=== PATIENT | female | born 1950 | race Caucasian/White ===

== ENCOUNTER → 2017-06-22 | Outpatient (CLI) | payer MEDICARE, OTHER | END | disposition home or self-care (01) | LOC: LABWHC1 15:51 | PROVIDERS: ATTEND Internal Medicine | DX: Z01.89 Encounter for other specified special examinations (principal) | CPT/HCPCS: 36415; 86803 ==

== ENCOUNTER → 2017-12-23 | Outpatient (CLI) | payer MEDICARE, OTHER ==
[2017-12-23 10:03] LABS: Basophils # (A) 0.1 k/uL (0-0.2); Basophils % (A) 1 %; Eosinophils # (A) 0.4 k/uL (0-0.7); Eosinophils % (A) 6 %; HCT 44.4 % (34.0-46.0); HGB 14.7 gm/dL (11.4-16.0); Lymphocytes # (A) 2.4 k/uL (1.0-4.8); Lymphocytes % (A) 35 %; MCH 30.7 pg (25.0-35.0); Mean Platelet Volume 6.5; Monocytes # (A) 0.4 k/uL (0-1.0); Monocytes % (A) 5 %; Neutrophils # (A) 3.4 k/uL (1.3-7.7); Neutrophils % (A) 51 %; Platelet Count 358 k/uL (150-450); RBC 4.78 m/uL (3.80-5.40); RDW 13.2 % (11.5-15.5); WBC 6.7 k/uL (3.8-10.6)
[2017-12-23 10:36] LABS: Albumin 4.3 g/dL (3.5-5.0); Calcium 9.8 mg/dL (8.4-10.2); Potassium 4.9 mmol/L (3.5-5.1); Total Bilirubin 0.5 mg/dL (0.2-1.3); Total Protein 7.1 g/dL (6.3-8.2)
== END | disposition home or self-care (01) ==
LOC: LABWHC1 09:35
PROVIDERS: ATTEND Internal Medicine
DX: Z00.00 Encounter for general adult medical examination without abnormal findings (principal); E53.8 Deficiency of other specified B group vitamins
CPT/HCPCS: 36415; 80053; 80061; 82607; 84439; 84443; 85025

== ENCOUNTER → 2018-12-08 | Outpatient (CLI) | payer OTHER ==
[2018-12-08 11:43] LABS: Basophils # (A) 0.1 k/uL (0-0.2); Basophils % (A) 1 %; Eosinophils # (A) 0.2 k/uL (0-0.7); Eosinophils % (A) 4 %; HCT 44.8 % (34.0-46.0); HGB 14.4 gm/dL (11.4-16.0); Lymphocytes # (A) 2.2 k/uL (1.0-4.8); Lymphocytes % (A) 38 %; MCH 30.2 pg (25.0-35.0); MCHC 32.1 g/dL (31.0-37.0); MCV 94.1 fL (80.0-100.0); Mean Platelet Volume 7.1; Monocytes # (A) 0.3 k/uL (0-1.0); Monocytes % (A) 5 %; Neutrophils # (A) 2.8 k/uL (1.3-7.7); Neutrophils % (A) 50 %; Platelet Count 339 k/uL (150-450); RBC 4.76 m/uL (3.80-5.40); RDW 14.5 % (11.5-15.5); WBC 5.7 k/uL (3.8-10.6)
[2018-12-08 18:08] LABS: African American GFR (CKD) 66.1 (60.0-200.0); Albumin 4.5 g/dL (3.80-4.90); Albumin/Globulin Ratio 2.05 (1.60-3.17); Anion Gap 5.9 mmol/L (4.00-12.00); Calcium 9.7 mg/dL (8.7-10.3); Carbon Dioxide 28.1 mmol/L (21.6-31.8); Globulin 2.2 g/dL (1.6-3.3); LDL Cholesterol,Calculated 108.4 mg/dL (0.0-131.0); Potassium 4.5 mmol/L (3.5-5.5); Total Bilirubin 0.5 mg/dL (0.2-1.2); Total Protein 6.7 g/dL (6.2-8.2); VLDL Calculation 28.6 mg/dL (5.00-40.00)
[2018-12-08 18:17] LABS: T4, Free (Free Thyroxine) 1.1 ng/dL (0.80-1.80)
== END | disposition home or self-care (01) ==
LOC: LABWHC1 10:41
PROVIDERS: ATTEND Internal Medicine
DX: E78.5 Hyperlipidemia, unspecified (principal); J45.909 Unspecified asthma, uncomplicated; K21.9 Gastro-esophageal reflux disease without esophagitis; G44.1 Vascular headache, not elsewhere classified; Z00.00 Encounter for general adult medical examination without abnormal findings
CPT/HCPCS: 36415; 80053; 80061; 84439; 84443; 85025

== ENCOUNTER 2019-03-24 10:23 | Emergency (ER) | payer MEDICARE, OTHER ==
[2019-03-24] MEDS ORDERED: SODIUM CHLORIDE 0.9% 1,000 ML IV STA (12:10)
[2019-03-24] MEDS ORDERED: ONDANSETRON 4 MG/2 ML VIAL IVP STA (12:10)
--- NOTE | 2019-03-24 12:44 | XR ---
EXAMINATION TYPE: XR chest 2V DATE OF EXAM: 03/24/2019 COMPARISON: Chest x-ray 06/08/2015 HISTORY: Weakness, dizziness and nausea, abnormal chest x-ray TECHNIQUE: Frontal and lateral views of the chest are obtained. FINDINGS: There is no focal air space opacity, pleural effusion, or pneumothorax seen. The cardiac silhouette size is within normal limits. Calcified breast implants are again noted. There are dense c alcifications in the splenic artery as on prior. Biapical pleural thickening is minimal. The osseous structures are intact. IMPRESSION: No acute cardiopulmonary process.
[2019-03-24 13:44] LABS: Basophils # (A) 0.1 k/uL (0-0.2); Basophils % (A) 1 %; Eosinophils # (A) 0.1 k/uL (0-0.7); Eosinophils % (A) 1 %; HCT 46.8 % (34.0-46.0); HGB 15.9 gm/dL (11.4-16.0); Lymphocytes # (A) 2.1 k/uL (1.0-4.8); Lymphocytes % (A) 23 %; MCH 31.9 pg (25.0-35.0); MCHC 33.9 g/dL (31.0-37.0); MCV 93.9 fL (80.0-100.0); Mean Platelet Volume 6.2; Monocytes # (A) 0.4 k/uL (0-1.0); Monocytes % (A) 4 %; Neutrophils # (A) 6.4 k/uL (1.3-7.7); Neutrophils % (A) 69 %; Platelet Count 350 k/uL (150-450); RBC 4.98 m/uL (3.80-5.40); RDW 13.2 % (11.5-15.5); WBC 9.2 k/uL (3.8-10.6)
[2019-03-24 13:50] VITALS: RESP 18
--- NOTE | 2019-03-24 13:50 | CT ---
EXAMINATION TYPE: CT brain wo con DATE OF EXAM: 03/24/2019 COMPARISON: 09/06/2015 HISTORY: Dizziness and weakness CT DLP: 1099.[address] of the brain was performed. The ventricles, basal cisterns and sulci overlying the cerebral convexities demonstrate mild enlargem ent. There is no evidence for intracranial hemorrhage or sulcal effacement. There is decreased attenuation about the periventricular white matter and deep white matter of both c erebral hemispheres, compatible with chronic small vessel ischemia. Differential diagnosis does inclu de demyelination. No mass effects are seen.No midline shift. Osseous calvarium is intact. If symptoms persist consider MRI. IMPRESSION: 1. Age related atrophic and chronic small vessel ischemic change without acute intracranial process s een at this time.
[2019-03-24 13:51] LABS: Appearance,Urine Clear (Clear); Bilirubin,Urine Negative (Negative); Blood,Urine Negative (Negative); Color,Urine Light Yellow; Glucose,Urine (UA) Negative (Negative); Ketones,Urine Trace (Negative); Leukocyte Esterase,Urine Negative (Negative); Nitrite,Urine Negative (Negative); PH, Urine 7.5 (5.0-8.0); Protein,Urine Negative (Negative); Specific Gravity,Urine 1.008 (1.001-1.035); Urobilinogen,Urine <2.0 mg/dL (<2.0)
[2019-03-24 13:54] LABS: INR 0.9 (<1.2); Partial Thromboplastin Time 23.3 sec (22.0-30.0); Prothrombin Time 9.8 sec (9.0-12.0)
[2019-03-24 13:56] LABS: Albumin 4.7 g/dL (3.5-5.0); Magnesium 2.2 mg/dL (1.6-2.3); Potassium 4.2 mmol/L (3.5-5.1); Total Bilirubin 0.4 mg/dL (0.2-1.3); Total Protein 7.9 g/dL (6.3-8.2)
--- NOTE | 2019-03-24 15:07 | ED ---
Weakness HPI - General Chief complaint: Weakness Stated complaint: dizzy, nausea, weakness Time Seen by Provider: 03/24/19 10:35 Source: patient Mode of arrival: wheelchair Limitations: no limitations - History of Present Illness Initial comments: The patient is a 69-year-old female with past medical history of chronic back pain who presents to the emergency department with 1-1/2 weeks of generalized weakness. The patient reports that she started having weakness with a presyncopal sensation. She was also having nausea. She thought it may be secon joslyn to one of her medications, Elavil. She reports that she's been on the medication for over 10 years and has had no ill side effects. She did read on the side effects and thought her symptoms were related and therefore took herself off of the medication. She states she did not taper off or consult her primary care physician. After she was off the medications her symptoms worsened. States that she is able to eat and hold down food and water however she remains persistently nauseated. She reports a mild headache and fatigue. Denies any visual changes. Denies any chest pain or shortness of breath. No neck pain or stiffness. No fevers or chills. Denies any abdominal pain. Denies diarrhea, constipation, melanotic stools or hematochezia. Denies any changes in her urination to include dysuria, hematuria or difficulty voiding. No other medication changes. Denies any unilateral numbness or weakness. There are no other alleviating, precipitating or modifying factors - Related Data Home Medications Medication Instructions Recorded Confirmed Amitriptyline HCl [Elavil] 10 mg PO HS 06/05/15 03/24/19 Aspirin 81 mg PO DAILY 06/05/15 03/24/19 Biotin 5 mg PO BID 06/05/15 03/24/19 Ca/D3/Mag/Zinc/Alejandro/Giovanin/Mgbor 1 tab PO DAILY 06/05/15 03/24/19 [Caltrate 600-D3-Min Chew Tab] Glucosamine/Chondr Russell A Sod [Osteo 1 tab PO DAILY 06/05/15 03/24/19 Bi-Flex Caplet] Metaxalone [Skelaxin] 800 mg PO DAILY 06/05/15 03/24/19 Montelukast [Singulair] 10 mg PO HS 06/05/15 03/24/19 Serafina-3 Fatty Acids/Fish Oil [Fish 1 cap PO DAILY 06/05/15 03/24/19 Oil 1,000 mg Softgel] Propylene Glycol/Peg 400/Pf 1 drop BOTH EYES DAILY PRN 06/05/15 03/24/19 [Systane 0.3-0.4% Eye Drops] Simvastatin [Zocor] 20 mg PO HS 06/05/15 03/24/19 metroNIDAZOLE 0.75% CREAM 1 applic TOPICAL DAILY 06/05/15 03/24/19 [Metrocream] Fluticasone/Salmeterol [Advair 1 puff INHALATION RT-HS 06/08/15 03/24/19 100-50 Diskus] Lansoprazole [Prevacid] 30 mg PO Q48H 03/24/19 03/24/19 Multivitamins, Thera [Multivitamin 1 tab PO DAILY 03/24/19 03/24/19 (formulary)] Naproxen Sodium [Aleve] 220 mg PO Q12HR PRN 03/24/19 03/24/19 Vitamin B-12 3000 Mcg Sl 3,000 mcg SUBLINGUAL Q48H 03/24/19 03/24/19 Previous Rx's Medication Instructions Recorded Ondansetron Odt [Zofran Odt] 4 mg PO Q8HR PRN #15 tab 03/24/19 Allergies Allergy/AdvReac Type Severity Reaction Status Date / Time buprenorphine HCl Allergy Unknown Unknown Verified 03/24/19 11:53 [From Buprenex] hydromorphone HCl Allergy Unknown Verified 03/24/19 11:53 [From Dilaudid] meperidine HCl [From Demerol] Allergy Unknown Verified 03/24/19 11:53 morphine Allergy Unknown Verified 03/24/19 11:53 narcotics Allergy Unknown Uncoded 03/24/19 11:53 Review of Systems ROS Statement: Those systems with pertinent positive or pertinent negative responses have been documented in the HPI. ROS Other: All systems not noted in ROS Statement are negative. Past Medical History Past Medical History: Asthma, GERD/Reflux, Hyperlipidemia Additional Past Medical History / Comment(s): 06/08/15 Pt is direct admission for GI bleed and back pain. Pt states she helped lift wood recently and thinks she "over did it". She has been using Motrin 800's for pain control. Other HX: back pain, lumbar disc disease with surgery, mild diverticulosis, post nasal drip, tinnitis bilaterally, dry eyes bilaterally, "jumpy legs when lies down at [facility] helps, rosacea, shingelles in 2010. History of Any Multi-Drug Resistant Organisms: None Reported Past Surgical History: Appendectomy, Back Surgery, Breast Surgery, Hysterectomy, Orthopedic Surgery, Tubal Ligation Additional Past Surgical History / Comment(s): bilateral mammoplasty 1976, cystocele, urethrocele, rectocele repair 1998, laminectomy 1996, reat laminectomy 2000, laminectomy and fusion L4-S1 soos, stress test positive, echo and stress echo-negative in January/February 2010, colonoscopies in 2003 and 2011, L hand surgery. Past Anesthesia/Blood Transfusion Reactions: Postoperative Nausea & Vomiting (PONV) Additional Past Anesthesia/Blood Transfusion Reaction / Comment(s): Pt received blood in the past-unsure if it was her own- no reaction. Past Psychological History: No Psychological Hx Reported Smoking Status: Never smoker Past Alcohol Use History: Occasional Past Drug Use History: None Reported - Past Family History Father Family Medical History: CVA/TIA Additional Family Medical History / Comment(s): Father at age 80 yrs old of CVA. He had chronic lumbar degenerative disc disease and nicderma. Mother Family Medical History: Cancer Additional Family Medical History / Comment(s): Mother at age 39yrs from ovarian cancer. General Exam Limitations: no limitations General appearance: alert, in no apparent distress Head exam: Present: atraumatic, normocephalic, normal inspection Eye exam: Present: normal appearance, PERRL, EOMI. Absent: scleral icterus, conjunctival injection, periorbital swelling ENT exam: Present: normal exam, mucous membranes moist Neck exam: Present: normal inspection. Absent: tenderness, meningismus, lymphadenopathy Respiratory exam: Present: normal lung sounds bilaterally. Absent: respiratory distress, wheezes, rales, rhonchi, stridor Cardiovascular Exam: Present: regular rate, normal rhythm, normal heart sounds. Absent: systolic murmur, diastolic murmur, rubs, gallop, clicks GI/Abdominal exam: Present: soft, normal bowel sounds. Absent: distended, tenderness, guarding, rebound, rigid Extremities exam: Present: normal inspection, full ROM, normal capillary refill. Absent: tenderness, pedal edema, joint swelling, calf tenderness Back exam: Present: normal inspection Neurological exam: Present: alert, oriented X3, CN II-XII intact, normal gait, other (negative pronator driff. Finger to nose is symetric bilaterally. 5/5 muscle strength in all extremities. ) Psychiatric exam: Present: normal affect, normal mood Skin exam: Present: warm, dry, intact, normal color. Absent: rash Course Vital Signs 03/24/19 03/24/19 03/24/19 10:34 13:49 15:52 Temperature 98.8 F 98.0 F Pulse Rate 69 77 76 Respiratory 16 18 18 Rate Blood Pressure 143/84 151/90 140/78 O2 Sat by Pulse 99 96 98 Oximetry EKG Findings - EKG Comments: EKG Findings:: EKG demonstrates a normal sinus rhythm with a ventricular rate of 72. MT interval 154. QRS 86. QTC 429. There is an inverted T-wave in lead 3. No acute ST segment elevations Medical Decision Making - Medical Decision Making Upon arrival the patient was placed into room 15. She was hooked up to continuous pulse ox and cardiac monitoring. A 12-lead EKG was performed on the patient. Peripheral IV was established. I did provide her with 4 mg of Zofran for her nausea and a liter bolus of normal saline. I did recommend laboratory studies. I also recommended a CT of the patient's brain. I offered CT imaging the patient's abdomen however she refused. Laboratory studies demonstrate a gl ucose of 103. Troponin is negative. Urinalysis shows trace ketones. CT of the brain demonstrates age-related atrophy and chronic small vessel ischemic changes without acute intracranial process seen at this time. Chest x-ray demonstrates no acute intrathoracic process. I did reevaluate the patient she states that she has had complete resolution of her symptoms. I discussed the laboratory elisa dies with the patient as well as her imaging studies. The patient feels improved to go home at this time. I did instruct her to take her medications as directed and follow-up with her primary care physician. if she wants to come off of these medications, she may need to be tapered. Patient understood this. If she continues to have nausea she may require an EGD and GI follow-up. The patient understood this. If she has any new or worsening symptoms she should return to the emergency room. The patient was discharge home in stable condition - Lab Data Result diagrams: 03/24/19 13:29 03/24/19 13:29 Lab Results 03/24/19 03/24/19 03/24/19 Range/Units 13:29 13:29 13:29 WBC 9.2 (3.8-10.6) k/uL RBC 4.98 (3.80-5.40) m/uL Hgb 15.9 (11.4-16.0) gm/dL Hct 46.8 H (34.0-46.0) % MCV 93.9 (80.0-100.0) fL MCH 31.9 (25.0-35.0) pg MCHC 33.9 (31.0-37.0) g/dL RDW 13.2 (11.5-15.5) % Plt Count 350 (150-450) k/uL Neutrophils % 69 % Lymphocytes % 23 % Monocytes % 4 % Eosinophils % 1 % Basophils % 1 % Neutrophils # 6.4 (1.3-7.7) k/uL Lymphocytes # 2.1 (1.0-4.8) k/uL Monocytes # 0.4 (0-1.0) k/uL Eosinophils # 0.1 (0-0.7) k/uL Basophils # 0.1 (0-0.2) k/uL PT (9.0-12.0) sec INR (<1.2) APTT (22.0-30.0) sec Sodium 141 (137-145) mmol/L Potassium 4.2 (3.5-5.1) mmol/L Chloride 103 (98-107) mmol/L Carbon Dioxide 28 (22-30) mmol/L Anion Gap 10 mmol/L BUN 10 (7-17) mg/dL Creatinine 0.84 (0.52-1.04) mg/dL Est GFR (CKD-EPI)AfAm 81 (>60 ml/min/1.73 sqM) Est GFR (CKD-EPI)NonAf 70 (>60 ml/min/1.73 sqM) Glucose 103 H (74-99) mg/dL Plasma Lactic Acid Forest 1.2 (0.7-2.0) mmol/L Calcium 10.0 (8.4-10.2) mg/dL Magnesium 2.2 (1.6-2.3) mg/dL Total Bilirubin 0.4 (0.2-1.3) mg/dL AST 27 (14-36) U/L ALT 25 (9-52) U/L Alkaline Phosphatase 75 (38-126) U/L Creatine Kinase 44 (30-135) U/L Troponin I (0.000-0.034) ng/mL Total Protein 7.9 (6.3-8.2) g/dL Albumin 4.7 (3.5-5.0) g/dL TSH 1.650 (0.465-4.680) mIU/L Urine Color Urine Appearance (Clear) Urine pH (5.0-8.0) Ur Specific [place] (1.001-1.035) Urine Protein (Negative) Urine Glucose (UA) (Negative) Urine Ketones (Negative) Urine Blood (Negative) Urine Nitrite (Negative) Urine Bilirubin (Negative) Urine Urobilinogen (<2.0) mg/dL Ur Leukocyte Esterase (Negative) 03/24/19 03/24/19 03/24/19 Range/Units 13:29 13:29 13:45 WBC (3.8-10.6) k/uL RBC (3.80-5.40) m/uL Hgb (11.4-16.0) gm/dL Hct (34.0-46.0) % MCV (80.0-100.0) fL MCH (25.0-35.0) pg MCHC (31.0-37.0) g/dL RDW (11.5-15.5) % Plt Count (150-450) k/uL Neutrophils % % Lymphocytes % % Monocytes % % Eosinophils % % Basophils % % Neutrophils # (1.3-7.7) k/uL Lymphocytes # (1.0-4.8) k/uL Monocytes # (0-1.0) k/uL Eosinophils # (0-0.7) k/uL Basophils # (0-0.2) k/uL PT 9.8 (9.0-12.0) sec INR 0.9 (<1.2) APTT 23.3 (22.0-30.0) sec Sodium (137-145) mmol/L Potassium (3.5-5.1) mmol/L Chloride (98-107) mmol/L Carbon Dioxide (22-30) mmol/L Anion Gap mmol/L BUN (7-17) mg/dL Creatinine (0.52-1.04) mg/dL Est GFR (CKD-EPI)AfAm (>60 ml/min/1.73 sqM) Est GFR (CKD-EPI)NonAf (>60 ml/min/1.73 sqM) Glucose (74-99) mg/dL Plasma Lactic Acid Forest (0.7-2.0) mmol/L Calcium (8.4-10.2) mg/dL Magnesium (1.6-2.3) mg/dL Total Bilirubin (0.2-1.3) mg/dL AST (14-36) U/L ALT (9-52) U/L Alkaline Phosphatase (38-126) U/L Creatine Kinase (30-135) U/L Troponin I <0.012 (0.000-0.034) ng/mL Total Protein (6.3-8.2) g/dL Albumin (3.5-5.0) g/dL TSH (0.465-4.680) mIU/L Urine Color Light Yellow Urine Appearance Clear (Clear) Urine pH 7.5 (5.0-8.0) Ur Specific [place] 1.008 (1.001-1.035) Urine Protein Negative (Negative) Urine Glucose (UA) Negative (Negative) Urine Ketones Trace H (Negative) Urine Blood Negative (Negative) Urine Nitrite Negative (Negative) Urine Bilirubin Negative (Negative) Urine Urobilinogen <2.0 (<2.0) mg/dL Ur Leukocyte Esterase Negative (Negative) Disposition Clinical Impression: Nausea Disposition: HOME SELF-CARE Condition: Stable Instructions (If sedation given, give patient instructions): Acute Nausea and Vomiting (ED) Additional Instructions: Please follow-up with your primary care doctor in 2-4 days. Return to the emergency room for any new or worsening symptoms. Prescriptions: Ondansetron Odt [Zofran Odt] 4 mg PO Q8HR PRN #15 tab PRN Reason: Nausea Is patient prescribed a controlled substance at d/c from ED?: No Referrals: Lisa Fried MD [Primary Care Provider] - 1-2 days Time of Disposition: 15:20
[2019-03-24 15:53] VITALS: BP 140/78; PULSE 76; TEMP 98
== END 2019-03-24 15:53 | disposition home or self-care (01) ==
LOC: EC 10:23
DX: R11.0 Nausea (principal); I67.82 Cerebral ischemia; G31.9 Degenerative disease of nervous system, unspecified; R82.4 Acetonuria; R53.1 Weakness; R51 Headache; R53.83 Other fatigue; K21.9 Gastro-esophageal reflux disease without esophagitis; E78.5 Hyperlipidemia, unspecified; G89.29 Other chronic pain; Z88.5 Allergy status to narcotic agent; Z79.51 Long term (current) use of inhaled steroids; Z79.82 Long term (current) use of aspirin; Z79.899 Other long term (current) drug therapy; J45.909 Unspecified asthma, uncomplicated; Z87.2 Personal history of diseases of the skin and subcutaneous tissue; Z90.49 Acquired absence of other specified parts of digestive tract; Z98.1 Arthrodesis status; Z82.3 Family history of stroke; Z53.20 Procedure and treatment not carried out because of patient's decision for unspecified reasons
CPT/HCPCS: 99285; 96374; 96361 ×2; 36415; 93005; 80053; 82550; 83605; 83735; 84443; 84484; 85025; 85610; 85730; 81003; 71046; 70450; J2405

== ENCOUNTER → 2019-06-15 | Outpatient (CLI) | payer MEDICARE ==
[2019-06-15 15:08] LABS: Basophils # (A) 0.1 k/uL (0-0.2); Basophils % (A) 1 %; Eosinophils # (A) 0.1 k/uL (0-0.7); Eosinophils % (A) 1 %; HCT 48.7 % (34.0-46.0); HGB 15.9 gm/dL (11.4-16.0); Lymphocytes # (A) 2.5 k/uL (1.0-4.8); Lymphocytes % (A) 30 %; MCH 31.3 pg (25.0-35.0); MCHC 32.6 g/dL (31.0-37.0); MCV 95.8 fL (80.0-100.0); Mean Platelet Volume 7.3; Monocytes # (A) 0.4 k/uL (0-1.0); Monocytes % (A) 4 %; Neutrophils # (A) 5.4 k/uL (1.3-7.7); Neutrophils % (A) 62 %; Platelet Count 350 k/uL (150-450); RBC 5.08 m/uL (3.80-5.40); RDW 12.9 % (11.5-15.5); WBC 8.6 k/uL (3.8-10.6)
[2019-06-15 18:37] LABS: T4, Free (Free Thyroxine) 1.1 ng/dL (0.80-1.80)
[2019-06-15 19:10] LABS: African American GFR (CKD) 65.6 (60.0-200.0); Albumin/Globulin Ratio 2.17 (1.60-3.17); Calcium 10.5 mg/dL (8.7-10.3); Globulin 2.3 g/dL (1.6-3.3); Non-African American GFR(CKD) 56.6 (60.0-200.0); Potassium 4.5 mmol/L (3.5-5.5); Total Bilirubin 0.4 mg/dL (0.2-1.2); Total Protein 7.3 g/dL (6.2-8.2)
[2019-06-15 20:26] LABS: Erythrocyte Sedimentation Rate 4 mm/hr (0-20)
[2019-06-17 13:01] LABS: ANA Pattern Speckled
== END | disposition home or self-care (01) ==
LOC: LABWHC1 14:08
PROVIDERS: ATTEND Internal Medicine
DX: R53.1 Weakness (principal); R53.83 Other fatigue; R53.81 Other malaise
CPT/HCPCS: 36415; 80053; 82306; 82607; 84439; 84443; 85025; 85652; 86038; 86039

== ENCOUNTER → 2021-01-25 | Day surgery (SDC) | payer MEDICARE ==
[2021-01-23 08:48] VITALS: BMI 24.3
[~2021-01-25] MED LIST: LACTATED RINGERS 1,000 ML IV SCH; LIDOCAINE 1% INJ 10MG/ML (20 ML MDV) ONE; ONDANSETRON 4 MG/2 ML VIAL IVP ONE; ONDANSETRON 4 MG/2 ML VIAL ONE; PROPOFOL 10 MG/ML 20 ML VIAL IV ONE
[2021-01-25 09:54] VITALS: TEMP 97
--- NOTE | 2021-01-25 10:37 | P.PCN ---
Date of Procedure: 01/25/21 Procedure(s) Performed: BRIEF HISTORY: Patient is a 71-year-old pleasant white female scheduled for an elective colonoscopy as a part of screening for colorectal neoplasia. PROCEDURE PERFORMED: Colonoscopy. PREOPERATIVE DIAGNOSIS: Screening for colon cancer IV sedation per Anesthesia. PROCEDURE: After informed consent was obtained, the patient, was brought into the endoscopy unit. IV sedation was administered by Anesthesia under continuous monitoring. Digital rectal examination was normal. Initially the Olympus CF-160 flexible video colonoscope was then inserted in the rectum, gradually advanced into the cecum without any difficulty. Careful examination was performed as the scope was gradually being withdrawn. Ileocecal valve and the appendiceal orifice were visualized and appeared normal. Prep was excellent. Mucosa of the cecum, ascending colon, transverse colon, descending colon, sigmoid colon, and rectum appeared normal.at her sigmoid diverticulosis. Scattered sigmoid diverticulosis Retroflexion was performed in the rectum and ssmall internal hemorrhoids were seen. The patient tolerated the procedure well. IMPRESSION: Normal-appearing colon from rectum to cecum with no evidence of colorectal neoplasia Scattered sigmoid diverticulosis Small internal hemorrhoids RECOMMENDATIONS: Findings of this examination were discussed with the patient as well as a family. She was advised to be a high-fiber diet and take fiber supplements a regular basis. She can have a repeat screening colonoscopy in 10 years .
[2021-01-25 10:42] VITALS: RESP 18
[2021-01-25 10:55] VITALS: BP 99/62; PULSE 80
== END ==
LOC: ORWHC2ENDO 09:16
PROVIDERS: ATTEND Internal Medicine Gastroenterology
DX: Z12.11 Encounter for screening for malignant neoplasm of colon (principal); K57.30 Diverticulosis of large intestine without perforation or abscess without bleeding; K64.8 Other hemorrhoids
CPT/HCPCS: J2405; J2001; J2704; G0121

== ENCOUNTER → 2022-02-20 | Outpatient (CLI) | payer MEDICARE ==
--- NOTE | 2022-02-20 10:12 | XR ---
EXAM TYPE: LUMBAR SPINE X RAY SERIES COMPARISON: 06/08/2015 HISTORY: Pain TECHNIQUE: 3 views are submitted. FINDINGS: Postsurgical change lower lumbar spine. Severe degenerative disc disease L2-L3. Vascular calcificatio ns noted. Hypertrophic and degenerative change of the spine. Diffuse osteopenia. Grade 1 anterolisthe sis L3 on L4 stable. IMPRESSION: 1. Postsurgical change similar to the prior exam. 2. Severe degenerative disc disease L2-L3 with grade 1 anterolisthesis L3 on L4.
== END | disposition home or self-care (01) ==
LOC: RADXRMAIN 09:48
PROVIDERS: ATTEND Internal Medicine
DX: M51.36 Other intervertebral disc degeneration, lumbar region (principal); M85.88 Other specified disorders of bone density and structure, other site
CPT/HCPCS: 72100

== ENCOUNTER 2022-06-18 06:41 | Day surgery (SDC) | payer MEDICARE ==
[~2022-06-18 06:41] MED LIST changes: +ALPRAZolam 0.25 MG TAB PO PRN; +ALPRAZolam 0.5 MG TAB PO PRN; +ASPIRIN 325 MG TAB PO STA; +ATORVASTATIN 80 MG TAB PO STA; +HEPARIN SODIUM,PORCINE 10,000 UNIT in SODIUM CHLORIDE 0.9% 1,000 ML IRRIGATION PRN; +HEPARIN SODIUM,PORCINE 2,500 UNIT in SODIUM CHLORIDE 0.9% 250 ML IRRIGATION PRN; -LACTATED RINGERS 1,000 ML IV SCH; -LIDOCAINE 1% INJ 10MG/ML (20 ML MDV) ONE; +NITROGLYCERIN SL TABS 0.4 MG TAB SUBLINGUAL PRN; -ONDANSETRON 4 MG/2 ML VIAL IVP ONE; -ONDANSETRON 4 MG/2 ML VIAL ONE; -PROPOFOL 10 MG/ML 20 ML VIAL IV ONE; +SODIUM CHLORIDE 0.9% 1,000 ML in EMPTY BAG 1 BAG IV ONE
[2022-06-18 07:10] VITALS: RESP 18; TEMP 98
[2022-06-18] MEDS ORDERED: VERAPAMIL 2.5 MG/ML 2 ML AMP ONE (09:08)
[2022-06-18] MEDS ORDERED: fentaNYL (PF) 50 MCG/ML 2 ML AMP ONE (09:09)
[2022-06-18] MEDS ORDERED: HEPARIN SODIUM 1,000 UN/ML (10ML VL) ONE (09:09)
[2022-06-18] MEDS ORDERED: fentaNYL (PF) 50 MCG/ML 2 ML AMP IVP ONE (09:45)
[2022-06-18] MEDS ORDERED: LIDOCAINE 1% INJ 10MG/ML (5 ML VIAL-PF) SQ ONE (09:54)
[2022-06-18] MEDS ORDERED: VERAPAMIL SYRINGE (5 MG/10 ML) INTRAARTER ONE (09:56)
[2022-06-18] MEDS: HEPARIN SODIUM 1,000 UN/ML (10ML VL) IVP ONE ×2 (09:59→10:04)
[2022-06-18] MEDS ORDERED: CLOPIDOGREL 75 MG TAB ONE (10:12)
[2022-06-18] MEDS ORDERED: CLOPIDOGREL 75 MG TAB PO ONE (10:14)
[2022-06-18] MEDS ORDERED: NITROGLYCERIN 1000MCG/10ML SYRINGE INTRACORON ONE (10:18)
[2022-06-18] MEDS ORDERED: IOPAMIDOL-370 125ML BTL INJ ONE (10:20)
[2022-06-18] MEDS ORDERED: ATROPINE SULFATE 0.1 MG/ML 10ML SYRINGE IV PRN (10:35)
[2022-06-18] MEDS ORDERED: MAG HYDROX/AL HYDROX/SIMETH 30 ML CUP PO PRN (10:35)
[2022-06-18] MEDS ORDERED: ZOLPIDEM 5 MG TAB PO PRN (10:35)
[2022-06-18] MEDS ORDERED: NITROGLYCERIN SL TABS 0.4 MG TAB SUBLINGUAL PRN (10:35)
[2022-06-18] MEDS ORDERED: RX INFO: IV CONTRAST WAS GIVEN 1 EACH MISC MISCELLANE PRN (10:35)
[2022-06-18] MEDS ORDERED: ACETAMINOPHEN TAB 325 MG TAB ONE (10:36)
[2022-06-18] MEDS ORDERED: ACETAMINOPHEN TAB 325 MG TAB PO PRN (10:38)
[2022-06-18] MEDS ORDERED: SODIUM CHLORIDE 0.9% 1,000 ML in EMPTY BAG 1 BAG IV SCH (10:45)
--- NOTE | 2022-06-18 10:46 | P.CARDCATH ---
Date of Procedure: 06/18/22 Description of Procedure: Cardiac Catheterization: The patient is a 72-year-old female with known history of hypertension and hyperlipidemia, history of CAD by calcium score who recently had an abnormal MPI. Recommendations were made regarding cardiac catheterization, the risks and the complications were discussed with the patient who is in full understanding and agreement. Procedure Description: Patient was brought to wharf lab[facility] in fasting semi-sedated state after receiving Fentanyl and Benadryl achieiving moderate conscious sedated state. Using Xylocaine Anesthesia and Seldinger technique, a 6-Turkish sheath was introduced in the right radial artery . Subsequently, selective coronary angiography was performed using a 5-Turkish 3.5 bend [place] catheter. Multiple views of the coronary artery including hemiaxial views were obtained. The right [place] catheter was used to cross the aortic valve and LVEDP was calculated. Following that a 6-Turkish AL 0.75 guiding catheter was introduced and the system, after cannulating the right ostium a 0.014 BMW J-wire was positioned in the distal RCA. Following that at 3.25 x 18 mm Xience mojgan point stent was deployed and dilated at 16 dheeraj. After appropriate wait the balloon was withdrawn back in the guiding catheter, images were obtained and revealed stable successful stenting. Following that, catheter and sheath were removed. Hemostasis was obtained with deployment of TR band . There was no immediate complication. Patient was returned to room in stable condition. Of note, the patient received a total of 6000 units of intravenous heparin as well as intra- arterial verapamil. She received an oral loading dose of clopidogrel. Her ACT was monitored. She had chest discomfort and EKG changes with the inflation that resolved at the end of the procedure. Findings: Fluoroscopy: severe calcification involving the LAD and left circumflex was no alen Left main: This is a short sized vessel bifurcating into left circumflex and LAD, left main has no high-grade stenosis LAD: This is a large size vessel, reaching to the apex with a wraparound apex segment. Giving rise to a large proximal diagonal branch. The mid LAD has intimal disease in multiple segment up to 30%. The diagonal branch has a 50% stenosis proximally, the rest of the vessel has no high-grade stenosis Left circumflex: This is a large nondominant vessel giving rise to 4 obtuse marginal branch the third one is the largest. The left circumflex is calcified and has mild intimal disease in the midsegment of 10-20%. RCA: This is a large dominant vessel, bifurcating into PDA and PLV. The proximal RCA has an eccentric 70% stenosis, the rest of the vessel has no high- grade stenosis. Left Ventriculogram: Not performed Hemodynamics: There was no gradient across the aortic valve, LVEDP was 15-20 mmHg Conclusion: 1. Calcified coronary arteries 2. Significant disease in the proximal RCA 3. Mild disease in the LAD and moderate disease in the first diagonal branch 4. Mild disease in the left circumflex 5. Successful stenting of the proximal RCA with reduction of stenosis from 70% to 0% Recommendations: The patient will continue on dual antiplatelet treatment with aspirin and clopidogrel for 6 months in addition to aggressive coronary risks modifications. The findings and the recommendations were discussed with the patient and the family and they were in full understanding and agreement. Duration of sedation is 30 minutes.
[2022-06-18 14:58] VITALS: BP 127/64; PULSE 74
[2022-06-18] MEDS ORDERED: METOPROLOL TARTRATE 50 MG TAB PO SCH (21:00)
[2022-06-19] MEDS ORDERED: ATORVASTATIN 40 MG TAB PO SCH (09:00)
[2022-06-19] MEDS ORDERED: ASPIRIN 81 MG PO SCH (09:00)
[2022-06-19] MEDS ORDERED: CLOPIDOGREL 75 MG TAB PO SCH (09:00)
== END 2022-06-18 15:15 | disposition home or self-care (01) ==
LOC: CATHCVL 06:41
PROVIDERS: ATTEND Internal Medicine Interventional Cardiology
DX: I25.10 Atherosclerotic heart disease of native coronary artery without angina pectoris (principal); I10 Essential (primary) hypertension; E78.5 Hyperlipidemia, unspecified; Z79.899 Other long term (current) drug therapy
CPT/HCPCS: 93458; C9600; C1769 ×3; C1887 ×2; C1894; C1874; J2001; J3010; J1644; Q9967

== ENCOUNTER → 2022-10-09 | Outpatient (CLI) | payer MEDICARE ==
--- NOTE | 2022-10-09 15:44 | CT ---
EXAMINATION TYPE: CT soft tissue neck w con DATE OF EXAM: 10/09/2022 COMPARISON: None HISTORY: ENLARGED LYMPH NODES CT DLP: 321.2 mGycm CONTRAST: CT scan of the neck is performed with IV Contrast, patient injected with 70ML mL of Isovue 300. Contrast enhanced CT of the neck was performed from the skull base through the lung apices. AIRWAY: The supraglottic, glottic, and subglottic portions of the airway appear patent and free of mass. SALIVARY GLANDS: The submandibular and parotid glands are free of mass or inflammatory process. THYROID GLAND: No nodules or masses seen. LYMPH NODES: There are multiple enlarged lymph nodes within the internal jugular chains bilaterally m easuring up to 1.2 cm on the left and 1 cm on the right. There are also prominent lymph nodes within the posterior triangles bilaterally as well as adjacent to the submandibular glands. 1 cm adenopathy right retrosternal space and multiple subcentimeter lymph nodes posterior to the left sternocleidomas toid musculature. At a site of clinical concern there is an enlarged lymph node noted measuring 11 mm . LUNG APICES: No nodule or mass is seen. OTHER: Vascular structures are patent. No significant degenerative change of the cervical spine. N o abscess seen. There are prominent axillary lymph nodes seen measuring up to 1.1 cm right axilla and 1.4 cm left axilla. IMPRESSION: 1. There is adenopathy throughout the neck as well as within the bilateral axillary regions and high right paratracheal region. Correlate for possible lymphoproliferative disorder.
== END | disposition home or self-care (01) ==
LOC: RADCTMAIN 13:55
PROVIDERS: ATTEND Internal Medicine
DX: R59.0 Localized enlarged lymph nodes (principal)
CPT/HCPCS: 82565; 84520; 70491; 36415; Q9967

== ENCOUNTER → 2023-01-29 | Outpatient (CLI) | payer MEDICARE ==
[2023-01-29 15:33] LABS: African American GFR (CKD) 62 (>60 ml/min/1.73 sqM); Blood Urea Nitrogen 17 mg/dL (7-17); Non-African American GFR(CKD) 53 (>60 ml/min/1.73 sqM)
--- NOTE | 2023-01-30 08:55 | CT ---
EXAMINATION TYPE: CT neck chest w con DATE OF EXAM: 01/29/2023 4:01 PM COMPARISON: CT soft tissue neck 10/09/2022 HISTORY: left side of neck enlarged lymph nodes f/u CT DLP: 731.1 mGycm Automated exposure control for dose reduction was used. CONTRAST: CT scan of the chest and neck is performed following with IV Contrast, patient injected with 80 mL of Isovue 300. Axial images are obtained, coronal and sagittal reformatted images are reviewed. FINDINGS: Neck: Head: The orbits, paranasal sinuses and visualized portions of the brain are grossly unremarkable. Suprahyoid Neck: The oropharynx, oral cavity, parapharyngeal and retropharyngeal spaces are clear and symmetric. The nasopharynx is unremarkable. Infrahyoid Neck: The larynx, hypopharynx, and supraglottic area are clear and symmetric. Parotid Glands: Unremarkable. Submandibular Glands: Unremarkable. Lymph Nodes: Stable bilateral prominent lymph nodes exams including a left internal jugular chain lym ph node measuring 0.9 cm short axis (series 3, image 66). Vascular Structures: Atherosclerotic calcifications identified of the arterial vasculature. Musculoskeletal: No acute osseous pathology. Degenerative changes of the cervical spine. Thyroid: Unremarkable Chest: LUNGS/ PLEURA: No pleural effusion, pneumothorax, focal consolidation. Bibasilar dependent cells and atelectasis. Right lower lobe punctate calcified granuloma. Biapical pleural-parenchymal scarring. AIRWAY: Patent and unremarkable.. HEART: Size within normal limits. No pericardial effusion. Mild coronary artery calcifications. MEDIASTINUM: Stable pretracheal 0.9 cm short axis lymph node, previously 1.0 cm. VASCULATURE: No aortic aneurysm. MUSCULOSKELETAL: No acute osseous abnormalities. SOFT TISSUES/LYMPH NODES: Stable enlarged left axial lymph node measuring up to 1.4 cm, additional pr ominent bilateral axillary lymph nodes redemonstrated. Stable prominent and enlarged bilateral suprac lavicular lymph nodes with largest on the left measuring 1.3 cm short axis (series 3, image 28). Bila teral peripherally calcified breast prosthesis redemonstrated LOWER NECK: No significant findings. UPPER ABDOMEN: Several prominent gastrohepatic ligament lymph nodes measuring less than 1 cm short ax is. Nonobstructive left renal 7 mm calculus IMPRESSION: Multiple stable enlarged/prominent lymph nodes demonstrated throughout the neck, supracl avicular regions, bilateral axillary regions, mediastinum, and gastrohepatic region. Correlate for po ssible lymphoproliferative disorder. Consider further evaluation with biopsy.
== END | disposition home or self-care (01) ==
LOC: RADCTMAIN 14:48
PROVIDERS: ATTEND Internal Medicine Hematology & Oncology
DX: J45.909 Unspecified asthma, uncomplicated (principal); E78.5 Hyperlipidemia, unspecified; I10 Essential (primary) hypertension; R59.0 Localized enlarged lymph nodes; Z71.3 Dietary counseling and surveillance
CPT/HCPCS: 82565; 84520; 70491; 71260; 36415; Q9967

== ENCOUNTER → 2023-08-11 | Outpatient (CLI) | payer MEDICARE ==
[2023-08-11 13:30] LABS: African American GFR (CKD) 63 (>60 ml/min/1.73 sqM); Blood Urea Nitrogen 15 mg/dL (7-17); Non-African American GFR(CKD) 55 (>60 ml/min/1.73 sqM)
--- NOTE | 2023-08-11 14:37 | CT ---
EXAMINATION TYPE: CT soft tissue neck w con CT DLP: 357.40 mGycm, Automated exposure control for dose reduction was used. DATE OF EXAM: 08/11/2023 2:04 PM COMPARISON: 01/29/2023.. CLINICAL INDICATION:Female, 73 years old with history of R59.0 LOCALIZED ENLARGED LYMPH NODES; PHH, 5 lymph nodes marked by radiopaque BB's. TECHNIQUE: Standard enhanced CT of the neck. Axial sections with coronal and sagittal reformats were obtained. Contrast used:80 ml mL of Isovue 300 with IV Contrast, (None if empty) Oral contrast used: (None if empty) FINDINGS: Brain: Visualized portions are grossly unremarkable. Orbits: Unremarkable Sinuses: Grossly unremarkable. Spaces of the neck: Clear and symmetric. Musculoskeletal: No acute osseous pathology. Lymph nodes: Innumerable lymph nodes are seen throughout the neck and extending down bilaterally into the shoulders, axilla, and mediastinum. Some of these lymph nodes appear larger including left poste rior neck 11 mm, previously 6 mm in short axis in the area of palpable abnormality in the left. Lymph nodes in the subpectoral regions bilaterally appear more prominent and enlarged compared to prior. Vascular structures: Visualized major arteries are patent without evidence of aneurysm. Thoracic Inlet/airway: Airway is patent. The lung apices are clear. Soft tissues/Thyroid: Thyroid and remainder of the soft tissues are unremarkable. Other: none. IMPRESSION Innumerable bilateral lymph nodes throughout the neck and extending down into the thorax, including b ilateral axilla the mediastinum. Lymph nodes appear larger and more numerable compared to prior on . Correlate with history of malignancy. Consider tissue sampling.
== END | disposition home or self-care (01) ==
LOC: RADCTMAIN 12:51
PROVIDERS: ATTEND Internal Medicine Hematology & Oncology
DX: R59.0 Localized enlarged lymph nodes (principal)
CPT/HCPCS: 82565; 84520; 70491; 36415; Q9967

== ENCOUNTER → 2023-09-07 | Day surgery (SDC) | payer MEDICARE ==
[~2023-09-07] MED LIST changes: +ACETAMINOPHEN IV (For NPO) 1,000 MG in EMPTY BAG 1 BAG IVPB ONE; +ACETAMINOPHEN TAB 325 MG TAB PO PRN; -ALPRAZolam 0.25 MG TAB PO PRN; -ALPRAZolam 0.5 MG TAB PO PRN; -ASPIRIN 325 MG TAB PO STA; -ATORVASTATIN 80 MG TAB PO STA; -HEPARIN SODIUM,PORCINE 10,000 UNIT in SODIUM CHLORIDE 0.9% 1,000 ML IRRIGATION PRN; -HEPARIN SODIUM,PORCINE 2,500 UNIT in SODIUM CHLORIDE 0.9% 250 ML IRRIGATION PRN; +KETAMINE HCL IN 0.9 % NACL 50 MG/5 ML SYRINGE ONE; +KETOROLAC 15 MG/ML 1 ML VIAL IVP SCH; +LIDOCAINE 1% INJ 10MG/ML (20 ML MDV) ONE; +MIDAZOLAM 2 MG/2 ML VIAL ONE; +NALOXONE 0.4 MG/ML 1 ML VIAL IV PRN; -NITROGLYCERIN SL TABS 0.4 MG TAB SUBLINGUAL PRN; +ONDANSETRON 4 MG/2 ML VIAL ONE; +PHENYLEPHRINE-0.9% NACL SYG 1,000 MCG/10 ML SYRINGE ONE; +PROPOFOL 10 MG/ML 20 ML VIAL IV ONE; +Pre Op ABX Message 1 EACH MISC MISCELLANE ONE; -SODIUM CHLORIDE 0.9% 1,000 ML in EMPTY BAG 1 BAG IV ONE; +SUCCINYLCHOLINE CHLORIDE 200 MG/10 ML VIAL IV ONE; +ePHEDrine 50 MG/ML 1 ML VIAL ONE
[2023-09-07 06:49] VITALS: RESP 16
[2023-09-07] MEDS: LACTATED RINGERS 1,000 ML IV ONE (06:51)
[2023-09-07] MEDS: ACETAMINOPHEN TAB 500 MG TAB PO PRN (06:59)
[2023-09-07] MEDS: ONDANSETRON 4 MG/2 ML VIAL IVP ONE (06:59)
[2023-09-07] MEDS: DEXAMETHASONE SOD PHOSPHATE 4 MG/ML 1 ML VIAL IVP ONE (07:00)
[2023-09-07 07:37] LABS: HGB 14.7 gm/dL (11.4-16.0); MCH 32.1 pg (25.0-35.0); MCHC 33.3 g/dL (31.0-37.0); MCV 96.2 fL (80.0-100.0); Mean Platelet Volume 7.6; Platelet Count 275 k/uL (150-450); RBC 4.57 m/uL (3.80-5.40); RDW 13.3 % (11.5-15.5); WBC 20.8 k/uL (3.8-10.6)
[2023-09-07 07:38] LABS: ALT 28 U/L (4-34); AST 34 U/L (14-36); African American GFR (CKD) 67 (>60 ml/min/1.73 sqM); Albumin 4.1 g/dL (3.5-5.0); Alkaline Phosphatase 67 U/L (38-126); Anion Gap 5 mmol/L; Blood Urea Nitrogen 15 mg/dL (7-17); Calcium 9.5 mg/dL (8.4-10.2); Carbon Dioxide 26 mmol/L (22-30); Chloride 109 mmol/L (98-107); Glucose 117 mg/dL (74-99); Non-African American GFR(CKD) 58 (>60 ml/min/1.73 sqM); Potassium 4.2 mmol/L (3.5-5.1); Sodium 140 mmol/L (137-145); Total Bilirubin 0.6 mg/dL (0.2-1.3); Total Protein 6.3 g/dL (6.3-8.2)
[2023-09-07] MEDS: HEPARIN SODIUM,PORCINE 5,000 UNIT/ML 1 ML VIAL SQ PRN (07:40)
[2023-09-07 07:48] LABS: Eosinophils # (M) 0.42 k/uL (0-0.7); Lymphocytes # (M) 14.77 k/uL (1.0-4.8); Monocytes # (M) 1.04 k/uL (0-1.0); Neutrophils # (M) 4.78 k/uL (1.3-7.7); Neutrophils % (M) 23 %; Nucleated Red Blood Cells 0 /100 WBC (0-0); Total Cells Counted 200
--- NOTE | 2023-09-07 07:48 | P.HPADDEND ---
H&P Addendum H&P Addendum Date: 09/07/23 Patient presents today for excisional biopsy left cervical lymph node. Please refer to history and physical on the chart. The patient states the lymph node in the left neck region has gotten smaller. We repeated our exam today. Both axillary lymph nodes remain enlarged. Will proceed with right axillary excisional lymph node biopsy instead of the left cervical lymph node biopsy.
[2023-09-07 07:52] LABS: RBC Morphology Normal
[2023-09-07] MEDS: BUPIVACAINE (PF) 0.25% 30 ML VIAL SQ ONE ×2 (08:06→08:15)
--- NOTE | 2023-09-07 08:37 | P.OP ---
Date of Procedure: 09/07/23 Procedure(s) Performed: PREOPERATIVE DIAGNOSIS: Lymphadenopathy POSTOPERATIVE DIAGNOSIS: Same PROCEDURE: Excisional biopsy right axillary lymph node SURGEON: Venkata EBL: 5 cc ANESTHESIA: General COMPLICATIONS: None OPERATIVE PROCEDURE: Patient placed on the operating table in the supine position. The patient's right axilla was prepped and draped sterilely. A curvilinear incision was made in the inferior aspect of the right axilla. Dissection through the subcutaneous tissues took place using electrocautery. Small vessels were clipped. Small lymphatics were clipped as well. The patient had a large lymph node approximately 3 to 4 cm in maximum dimension that was removed and sent to pathology fresh. The area was irrigated. No bleeding was seen. The area was localized with Marcaine. The subcutaneous layer was closed using 3-0 Vicryl sutures and the skin using a running 4-0 Monocryl subcuticular stitch. Skin glue and sterile dressings were then applied. DISPOSITION: Stable to recovery room
[2023-09-07 09:09] VITALS: TEMP 97
[2023-09-07 10:53] VITALS: BP 117/59; PULSE 72
== END ==
LOC: OR 06:04
PROVIDERS: ATTEND Surgery
DX: C91.10 Chronic lymphocytic leukemia of B-cell type not having achieved remission (principal); I10 Essential (primary) hypertension; I25.10 Atherosclerotic heart disease of native coronary artery without angina pectoris; E78.5 Hyperlipidemia, unspecified; J45.909 Unspecified asthma, uncomplicated; K21.9 Gastro-esophageal reflux disease without esophagitis; Z79.82 Long term (current) use of aspirin; Z79.890 Hormone replacement therapy; Z79.899 Other long term (current) drug therapy; Z79.51 Long term (current) use of inhaled steroids
CPT/HCPCS: 38500; 80053; 88184; 88185; 85025; 88342; 88307; 88341; J2250; J0330; J1644; J1100; J2405; J2001; J2704; J2371; J0665

== ENCOUNTER → 2023-11-03 | Outpatient (CLI) | payer MEDICARE ==
--- NOTE | 2023-11-04 08:55 | US ---
EXAMINATION TYPE: US carotid duplex BILAT DATE OF EXAM: 11/03/2023 COMPARISON: NONE CLINICAL INDICATION: Female, 73 years old with history of I65.23 CAROTID STENOSIS; Stenosis TECHNIQUE: Carotid duplex ultrasound examination. Indirect Doppler criteria was utilized. FINDINGS: EXAM MEASUREMENTS: RIGHT: Peak Systolic Velocity (PSV) cm/sec ----- Right CCA: 65.3 ----- Right ICA: 81.4 ----- Right ECA: 65.3 ICA/CCA ratio: 1.2 RIGHT: End Diastole cm/sec ----- Right CCA: 21.7 ----- Right ICA: 30.9 ----- Right ECA: 6.0 LEFT: Peak Systolic Velocity (PSV) cm/sec ----- Left CCA: 74.4 ----- Left ICA: 87.9 ----- Left ECA: 60.1 ICA/CCA ratio: 1.2 LEFT: End Diastole cm/sec ----- Left CCA: 20.5 ----- Left ICA: 29.6 ----- Left ECA: 5.1 VERTEBRALS (direction of flow): Right Vertebral: Antegrade Left Vertebral: Antegrade Rhythm: Normal COMMUNICATIONS ASSISTANT NOTES: No significant stenosis seen IMPRESSION: 1. No significant flow-limiting stenosis based on velocities. Criteria for Assigning % of Stenosis / Diameter reduction (Estimation based on the indirect measurements of the internal carotid artery velocities (ICA PSV). 1. Normal (no stenosis)=ICA PSV < 125 cm/s: ratio < 2.0: ICA EDV<40 cm/s. 2. Less than 50% stenosis=ICA PSV < 125 cm/s: ratio < 2.0: ICA EDV<40 cm/s. 3. 50 to 69% stenosis=ICA PSV of 125 to 230 cm/s: ration 2.0 ? 4.0: ICA EDV 40-100 cm/s. 4. Greater than 70% stenosis to near occlusion= ICA PSV > 230 cm/s: ratio > 4.0: ICA EDV > 100 cm/s. 5. Near occlusion= ICA PSV velocities may be low or undetectable: variable ratio and ICA EDV. 6. Total occlusion=unable to detect flow.
--- NOTE | 2023-11-04 09:38 | US ---
EXAMINATION TYPE: US kidneys/renal and bladder DATE OF EXAM: 11/03/2023 COMPARISON: CT CLINICAL INDICATION: Female, 73 years old with history of N18.2 CHRONIC KIDNEY DISEASE, STAGE 2 (MILD ); CKD EXAM MEASUREMENTS: Right Kidney: 10.2 x 4.4 x 4.3 cm Left Kidney: 10.5 x 5.7 x 4.4 cm Right Kidney: wnl, lower pole gassed out Left Kidney: wnl Bladder: wnl Bilateral Jets seen: No IMPRESSION: 1 unremarkable renal ultrasound as visualized.
== END | disposition home or self-care (01) ==
LOC: RADUSWWP 10:21
PROVIDERS: ATTEND Internal Medicine
DX: N18.2 Chronic kidney disease, stage 2 (mild) (principal); I65.23 Occlusion and stenosis of bilateral carotid arteries
CPT/HCPCS: 76770; 93880

== ENCOUNTER → 2024-01-22 | Outpatient (CLI) | payer MEDICARE ==
--- NOTE | 2024-01-22 12:08 | XR ---
EXAMINATION TYPE: XR lumbar spine 2 or 3V DATE OF EXAM: 01/22/2024 11:49 AM CLINICAL INDICATION:Female, 74 years old with history of G62.9 Neuropathy; PHH COMPARISON: None TECHNIQUE: XR lumbar spine 2 or 3V - Frontal, lateral and coned in L5-S1 lateral views of the spine. FINDINGS: Fixation hardware in the spine there is some lucency around the pedicle screws at L4 and L5 . No evidence of any acute osseous pathology. No evidence of loss of vertebral body height is seen. There is normal alignment of the lumbar vertebral bodies. Scattered disc space narrowing. Multilevel marginal osteophyte formation throughout the visualized spine. There is facet joint arthropathy throu ghout the spine. Neural foraminal stenosis at L2-L3. Sclerosis of the arterial vasculature. IMPRESSION: 1. Fixation hardware with lucency around the pedicles screws of L4 and L5 correlate for loosening. 2. No acute fracture. 3. Severe degeneration multilevel disc degeneration.
== END | disposition home or self-care (01) ==
LOC: RADXRMAIN 11:31
PROVIDERS: ATTEND Internal Medicine
DX: M51.36 Other intervertebral disc degeneration, lumbar region (principal)
CPT/HCPCS: 72100